=== PATIENT | female | born 1980 | race Caucasian/White ===

== ENCOUNTER 2024-09-11 14:36 | Emergency (ER) | payer SELFPAY ==
[2024-09-11 14:47] VITALS: BP 134/75
[2024-09-11 15:17] LABS: HCG, Serum Qualitative Screen Negative
[2024-09-11 15:20] LABS: ALT (SGPT) 37 U/L (0-35); AST (SGOT) 32 U/L (14-36); Albumin 4.6 g/dl (3.5-5.0); Alkaline Phosphatase 50 U/L (38-126); Blood Urea Nitrogen 14 mg/dl (7-17); Calcium 9.7 mg/dl (8.4-10.2); Carbon Dioxide 27 mmol/L (22-30); Chloride 105 mmol/L (98-107); Glucose 95 mg/dl (70-99); Lipase 162 U/L (23-300); Potassium 4.1 mmol/L (3.5-5.1); Sodium 138 mmol/L (135-145); Total Bilirubin 0.4 mg/dl (0.2-1.3); Total Protein 7.2 g/dl (6.3-8.2); eGFR > 60.00
[2024-09-11 15:24] LABS: % Basophils 0.4 % (0-2); % Eosinophils 0.8 % (0-6); % Immature Granulocytes 0.2 % (0-0.5); % Lymphocytes 20.3 % (20.5-51.1); % Monocytes 4.7 % (1.7-9.3); % Neutrophils 73.6 % (42.2-75.2); Absolute Eosinophils 0.1 10^3/uL (0-0.7); Absolute Lymphocytes 1.9 10^3/uL (1.2-3.4); Absolute Monocytes 0.4 10^3/uL (0.1-0.6); Absolute Neutrophils 6.8 10^3/uL (1.4-6.5); Hematocrit 42.5 % (37.0-47.0); Mean Corp Hgb Conc. 32.9 g/dL (33.0-37.0); Mean Corpuscular Hgb 30.8 pg (27.0-31.0); Mean Corpuscular Volume 93.6 fL (81.0-99.0); Mean Platelet Volume 9.8 fL (7.4-10.4); Nucleated Red Blood Cells % 0 %; Platelet Count 309 10^3/uL (130-400); Red Blood Cell Count 4.54 10^6/uL (4.20-5.40); Red Cell Dist. Width 12.3 % (11.5-14.5); White Blood Cell Count 9.3 10^3/uL (4.8-10.8)
[2024-09-11 15:30] LABS: Troponin I < 0.012 ng/ml
[2024-09-11 18:31] VITALS: BP 107/69
[2024-09-11 18:34] VITALS: BMI 34.8
--- NOTE | 2024-09-11 18:42 | ED.GENMED ---
History of Present Illness
General
Chief Complaint: Chest Pain
Source: patient
Exam Limitations: none
Time Seen by Provider: 09/11/24 18:26
History of Present Illness
History of Present Illness:
44yoF with no significant past medical history presenting for evaluation of chest pain. Symptoms initially started 5 days ago while she was driving to [place]. The symptoms self-resolved at that time and occurred again 3 days ago. Symptoms recurred
yesterday morning around 11am and have been constant since then. She reports an aching, sharp pain throughout her chest. The pain worsens slightly with deep breathing. She denies any associated leg swelling, calf pain, syncope. Patient went to
urgent care today and was sent to the ED for evaluation. She did feel short of breath while walking from her car into the ED today. Patient returned from her trip to [place] 2 days ago which was an [address]
Past History
Past History
ED Past Medical History: None
ED Past Surgical History: None
Social History
Personal:
Living: with family
Phy Exam
General Physical Exam
General Presentation: well appearing and no apparent distress
General age: appears stated age
General Skin: warm and dry
General Habitus: normal
General Mental: alert
ENT Exam
ENT Exam: normocephalic
Cardiovascular Exam
Cardiovascular Exam: regular rate/rhythm, no edema, no murmur and normal peripheral pulses
Pulmonary Exam
Pulmonary Exam: lungs clear, no respiratory distress, no rales, no crackles and no rhonchi
Neurological Exam
Neurological Exam: alert
[place] Coma Scale
Eye Opening: Spontaneous
Verbal Response: Oriented
Motor Response: Obeys Commands
GCS Total Score: 15
Skin Exam
Skin Exam: normal color and warm/dry
Psychiatric Exam
Psychiatric Exam: normal mood/affect
Scores
Heart Score for Chest Pain Patients
STEMI patient?: No
History: Slightly or Non-Suspicious
ECG: Nonspecific Repolarization
Age: </= 45 years
Risk Factors: 1 or 2 Risk Factors
Troponin: </= Normal Limit
Heart Score for Chest Pain Patients: 2
Heart Score Risk: 2.5% MACE over next 6 weeks
Course
Orders/Labs/Results
Orders:
Orders
09/11/24 14:38
Electrocardiogram (*1) Urgent
Reason for Study: Chest Pain
09/11/24 14:39
EKG- Treatment ONCE
Test Result ONCE
09/11/24 14:55
Complete Blood Count/With Diff Urgent
Comprehensive Metabolic Panel Urgent
HCG, Serum Qualitative Screen Urgent
Lipase Urgent
Troponin I Urgent
09/11/24 18:43
Electrocardiogram (*1) Urgent
Reason for Study: Chest Pain
Cardiac Monitoring- Treatment ONCE
EKG- Treatment ONCE
CR Chest - 2 Views Urgent
Comment:
Reason For Exam: CP
09/11/24 19:03
D-Dimer Urgent
Troponin I Urgent
Abnormal Lab Results
09/11/24
14:55
MCHC 32.9 L g/dL
(33.0-37.0)
Absolute Neuts (auto) 6.8 H 10^3/uL
(1.4-6.5)
Lymphocytes % 20.3 L %
(20.5-51.1)
ALT 37 H U/L
(0-35)
09/11/24 14:55
09/11/24 14:55
Vital Signs
Initial and Last Documented VS:
Initial Vital Signs
Temp Pulse Resp BP Pulse Ox
98.4 F 85 18 134/75 98
09/11/24 14:47 09/11/24 14:47 09/11/24 14:47 09/11/24 14:47 09/11/24 14:47
Last Documented Vital Signs
Temp Pulse Resp BP Pulse Ox
98.4 F 85 18 107/69 99
09/11/24 14:47 09/11/24 14:47 09/11/24 14:47 09/11/24 18:31 09/11/24 18:32
MDM/Problems Addressed
Differential Diagnosis Includes:
44yoF here with chest pain. Two episodes over the past 5 days. Pain now constant since yesterday. Sent here by urgent care. Recently returned from a trip to [place]. She is afebrile and hemodynamically stable. She is well-appearing no acute
distress. Exam is reassuring. Differential diagnosis includes but is not limited to: ACS, PE, pneumonia, musculoskeletal, nonspecific chest pain
Initial ED plan: Cardiac labs and EKG obtained in triage. EKG shows an isolated T wave inversion in V3. Troponin normal. Will check D-dimer, delta troponin/EKG, and chest x-ray.
*EKG
Interpreted by ED Provider?: Yes
EKG Intrepretation Date: 09/11/24
Heart Rate: 85
Rate: normal
Rhythm: sinus
Alice: normal axis
Interval: normal interval
QRS Pattern: normal QRS
Ischemia: T-wave inversion (V3)
*Critical Care Note
Total Time (30-74mins, 75-104mins- exclusive of procedures): Not Applicable
Update Note
Update Note:
Repeat EKG and troponin unchanged. D-dimer normal making PE very unlikely. Chest x-ray is clear. No indication for hospitalization. She was advised to follow-up closely with her PCP. ED return precaution discussed. Patient expressed
understanding and is agreement with plan. She was discharged in stable condition.
ED Attending Note
-
Portions of this chart may have been created with voice recognition software.� Occasional wrong word or��sound alike� substitutions may have occurred due to the inherent limitations of voice recognition software.
Discharge Plan
Departure
Patient Disposition: Home (Routine Discharge)
Date of Disposition: 09/11/24
Time of Disposition: 20:15
Patient with high blood pressure during this ER visit?: No
Discharge Problem:
Chest pain
Instructions: Chest Pain PCP Follow Up
Prescriptions:
No Action
prenat.vits,teddy,[id number] [ Formula] 1 TAB tablet
1 tab PO DAILY
Referrals:
Oziel Rollins MD [Family Provider] -
Activity Restrictions/Additional Instructions:
Please call your family doctor tomorrow to schedule a follow-up appointment. Return to the ER immediately with any new or worsening symptoms.
Interventions
Interventions:
*Risk Screen - Suicide Last Done: 09/11/24 14:47
*General Assessment Last Done: 09/11/24 14:47
*Neglect/Abuse Screening Last Done: 09/11/24 20:30
ED- Fall Risk Assessment Last Done: 09/11/24 19:00
*ED COVID-19 Vaccine History Last Done: 09/11/24 14:47
*Nursing Disposition Last Done: 09/11/24 20:30
ED- Cardiac Assessment Last Done: 09/11/24 19:00
Discharge Date and Time
Discharge Date/Time: 09/11/24 20:33
Print Language: [place]
[2024-09-11 19:34] LABS: D-Dimer < 0.27 ug/mlFEU (0.00-0.50)
[2024-09-11 19:40] LABS: Troponin I < 0.012 ng/ml
== END 2024-09-11 20:33 | disposition home or self-care (01) ==
LOC: EMR 14:36
PROVIDERS: Emergency Medicine; Physician Assistant; EMERGENCY PHYSICIAN Student in an Organized Health Care Education/Training Program; FAMILY PHYSICIAN Family Medicine
DX: R07.9 Chest pain, unspecified (principal); R06.02 Shortness of breath
CPT/HCPCS: 99285; 71046; 80053; 83690; 84484; 84703; 85025; 85379; 93005